=== PATIENT | male | born 1950 | race African-American/Black ===

== ENCOUNTER 2016-04-24 22:42 | Emergency (ER) | payer OTHER ==
[~2016-04-24] VITALS: Ht 165.1 cm; Wt 160.6 kg
[~2016-04-24 22:42] MED LIST: ELIQUIS5 MG PO; NEURONTIN300 MG PO; SIMVASTATIN40 MG PO; SINGULAIR10 MG PO
[2016-04-24 23:10] LABS: BICARBONATE 30.4 mEq/L (22-26); CARBOXY HGB 1.5 % (0-5); PCO2 59 mm Hg (35-45); PO2 55 mm Hg (80-100); pH 7.32 (7.35-7.45)
[2016-04-24 23:11] LABS: COMMENTS - BLOOD GASES C+A+; DEVICE 840 VENT; FI02 60 %; MECHANICAL RATE 14 resp/min; MODE SIMV; PEEP 5 CM/H20; PRES. SUPPORT 15 CM/H2O; SITE RR; TIDAL VOLUME 500 ML; TOTAL RESP RATE 20 resp/min
[2016-04-24 23:37] LABS: EOSINOPHIL (%) 3.1 % (0-5); EOSINOPHIL COUNT 0.3 K/uL (0-0.3); IMMATURE GRANULOCYTE (%) 0.3 % (0.0-0.7); IMMATURE GRANULOCYTE COUNT 0.3 K/uL; LYMPHOCYTE COUNT 1.4 K/uL (1.0-2.8); MCH 29.9 PG (29.0-34.0); MCHC 31.4 G/DL (30.0-36.0); MCV 95.4 FL (86-99); MEAN PLAT.VOLUME 10.7 uM^3 (9.0-12.4); MONOCYTE (%) 7.6 % (3-12); MONOCYTE COUNT 0.9 K/uL (0-0.8); NEUTROPHIL (%) 75.9 % (45-76); NEUTROPHIL COUNT 8.5 K/uL (1.8-6.4); PLATELET COUNT 257 K/uL (156-360); RBC DIS.WIDTH-CV 15.3 % (11.8-14.6); RBC DIS.WIDTH-SD 50.9 % (39-53); RED BLOOD COUNT 3.88 M/uL (4.00-5.50); WHITE BLOOD COUNT 11.1 K/uL (4.1-10.2)
[2016-04-24 23:46] LABS: INTER. NORMALIZED RATIO 1.1; PROTHROMBIN TIME 11.5 (9.2-11.2); PTT 27.5 (25-32)
[2016-04-24 23:58] LABS: TROP-I INTERPRETATION NEGATIVE; TROPONIN-I < 0.01 ng/mL (0.0-0.30)
[2016-04-25] MEDS ORDERED: NEURONTIN300 MG PO (01:30)
[2016-04-25] MEDS ORDERED: IPRATROPIU0.2 MG/1 M IH (01:31)
[2016-04-25] MEDS ORDERED: BUDESONIDE0.5 MG/2 M IH (01:31)
[2016-04-25] MEDS ORDERED: ELIQUIS5 MG PO (01:32)
[2016-04-25] MEDS ORDERED: PROVENTIL,2.5 MG/3 M IH (01:32)
[2016-04-25] MEDS ORDERED: LOPRESSOR25 MG PO (01:33)
[2016-04-25] MEDS ORDERED: SINGULAIR10 MG PO (01:33)
[2016-04-25] MEDS ORDERED: SENNA8.6 MG PO (01:34)
[2016-04-25] MEDS ORDERED: COLACE100 MG PO (01:34)
[2016-04-25] MEDS ORDERED: GENERLAC10 GM/15 M PO ×2 (01:35→01:40)
[2016-04-25] MEDS ORDERED: MIRALAX17 GM PO (01:36)
[2016-04-25] MEDS ORDERED: K-SOL20 MEQ/15 PO (01:36)
[2016-04-25] MEDS ORDERED: ZOCOR40 MG PO (01:37)
[2016-04-25] MEDS ORDERED: AMBIEN5 MG PO (01:37)
[2016-04-25] MEDS ORDERED: MIRTAZAPINE7.5 MG PO (01:38)
[2016-04-25] MEDS ORDERED: PERCOCET 5/31 TABLET PO (01:38)
[2016-04-25] MEDS ORDERED: GAS-X80 MG PO (01:39)
[2016-04-25] MEDS ORDERED: ATIVAN0.5 MG PO (01:40)
[2016-04-25 01:57] LABS: BICARBONATE 31.1 mEq/L (22-26); CARBOXY HGB 1.7 % (0-5); COMMENTS - BLOOD GASES C+A+; DEVICE 840 VENT; FI02 80 %; MECHANICAL RATE 14 resp/min; MODE SIMV; PCO2 59 mm Hg (35-45); PO2 66 mm Hg (80-100); SITE RR; TOTAL RESP RATE 24 resp/min; pH 7.33 (7.35-7.45)
[2016-04-25 01:58] LABS: PEEP 8 CM/H20; PRES. SUPPORT 15 CM/H2O; TIDAL VOLUME 500 ML
[2016-04-25 02:00] LABS: CHLORIDE 98 mEq/L (99-109); SODIUM 133 mEq/L (136-147)
[2016-04-25 02:02] LABS: GLUCOSE 112 mg/dL (70-99)
[2016-04-25 02:03] LABS: ANION GAP 11 MEQ/L (2-14)
[2016-04-25 02:04] LABS: TOTAL BILIRUBIN 0.3 mg/dL (0.0-1.0)
[2016-04-25 02:06] LABS: ALKALINE PHOSPHATASE 80 IU/L (3-129); GFR ESTIMATE (CALCULATED) > 59 mL/min/
[2016-04-25 02:07] LABS: UREA NITROGEN (BUN) 13 mg/dL (9-23)
[2016-04-25 03:43] LABS: D-DIMER ELISA > 4.00 mg/L FEU (< 0.57)
[2016-04-25 08:20] VITALS: BP 147/86
== END 2016-04-25 08:21 ==
LOC: EME → EDBD 22:42 → EME 04-25 08:21
PROVIDERS: Emergency Medicine
PROC: 5A1935Z Respiratory Ventilation, Less than 24 Consecutive Hours (ICD-10-PCS; principal; 2016-04-24)
DX: T17.900A Unspecified foreign body in respiratory tract, part unspecified causing asphyxiation, initial encounter (principal); J40 Bronchitis, not specified as acute or chronic; J96.21 Acute and chronic respiratory failure with hypoxia; Z99.11 Dependence on respirator [ventilator] status; R04.2 Hemoptysis; J44.9 Chronic obstructive pulmonary disease, unspecified; Z93.0 Tracheostomy status; E11.9 Type 2 diabetes mellitus without complications; I48.91 Unspecified atrial fibrillation; Z79.01 Long term (current) use of anticoagulants; N18.9 Chronic kidney disease, unspecified; E66.01 Morbid (severe) obesity due to excess calories; I89.0 Lymphedema, not elsewhere classified; Z68.43 Body mass index [BMI] 50.0-59.9, adult
CPT/HCPCS: 36600; 70498; 71010; 71250; 71275; 80053; 80200; 81003; 82803; 83605; 84484; 85025; 85379; 85610; 85730; 87040; 87070; 87077; 87147; 87186; 87205; 93005; 94002; 94003; 94640; 94799; 99281; 99285; J1170; J2405; J2543; J3260; J3370; J7030; J7050; J7644